=== PATIENT | female | born 1955 | race African-American/Black ===

== ENCOUNTER 2021-06-24 12:54 | Inpatient (IN) | payer MEDICAID ==
[~2021-06-24] VITALS: Ht 165.1 cm; Wt 80.3 kg
[2021-06-24 14:31] LABS: BASOPHILS % 0.3 % (0.0-2.0); EOSINOPHILS % 1.7 % (0.0-5.0); HEMATOCRIT. 40.9 % (36.0-48.0); HEMOGLOBIN. 14.1 g/dL (12.0-16.0); LYMPHOCYTES % 42.5 % (20.0-50.0); MEAN CORPUSCULAR HEMOGLOBIN 27.9 pg (28.0-32.0); MEAN PLATELET VOLUME 9.5 fl (7.4-10.4); MONOCYTES % 7.6 % (2.0-8.0); NEUTROPHILS % 47.9 % (40.0-76.0); PLATELET 283 x1000/uL (130-400); RED BLOOD CELL COUNT 5.05 mill/uL (4.2-5.4); RED CELL DISTRIBUTION WIDTH 15.2 % (11.6-14.6)
[2021-06-24 14:32] LABS: CLARITY URINE CLEAR (CLEAR); COLOR URINE YELLOW (YELLOW); KETONES URINE NEGATIVE (NEGATIVE); LEUKOCYTE ESTERASE URINE NEGATIVE (NEGATIVE); NITRITE URINE NEGATIVE (NEGATIVE); OCCULT BLOOD URINE NEGATIVE (NEGATIVE); PH URINE 7.5 (4.5-8.0); PROTEIN URINE NEGATIVE (NEGATIVE); SPECIFIC GRAVITY URINE 1.019 (1.005-1.030); UROBILINOGEN URINE 0.2 E.U./dL (0.2-1.0)
[2021-06-24 14:38] LABS: CHLORIDE 114 mEq/L (98-107)
[2021-06-24 14:42] LABS: ETHANOL BLOOD < 10 mg/dL
[2021-06-24 15:05] LABS: *AMPHETAMINES SCREEN URINE NEGATIVE (NEGATIVE); *BARBITURATES SCREEN URINE NEGATIVE (NEGATIVE); *BENZODIAZEPINES SCREEN URINE PRESUMTIVE POSITIVE (NEGATIVE); *COCAINE SCREEN URINE NEGATIVE (NEGATIVE); METHADONE URINE SCREEN NEGATIVE (NEGATIVE); OPIATES URINE SCREEN PRESUMTIVE POSITIVE (NEGATIVE)
[2021-06-24 15:06] LABS: CANNABINOID URINE SCREEN NEGATIVE (NEGATIVE); PHENCYCLIDINE URINE SCREEN NEGATIVE (NEGATIVE)
[2021-06-24] MEDS ORDERED: SODIUM CHLORIDE 0.9% 1,000 ML IV ONE (16:00)
[2021-06-24] MEDS ORDERED: HYDRALAZINE 20MG/ML VIAL IV ONE ×2 (16:15→17:15)
[2021-06-24] MEDS ORDERED: CLONIDINE 0.1MG TABLET PO ONE (20:00)
[2021-06-24] MEDS ORDERED: HYDRALAZINE 20MG/ML VIAL IV NR (20:15)
[2021-06-24] MEDS ORDERED: ONDANSETRON HCL 4MG/2ML INJ IV NR (20:15)
[2021-06-24 21:00] VITALS: BP 173/60
[2021-06-24] MEDS ORDERED: GUAIFENESIN 200MG/10ML SUGAR FREE UDC PO PRN (22:15)
[2021-06-24] MEDS ORDERED: ENOXAPARIN 40MG/0.4ML SYR SUBCUT SCH (22:15)
[2021-06-24] MEDS ORDERED: CLONIDINE 0.1MG TABLET PO PRN (22:15)
[2021-06-24] MEDS ORDERED: DOCUSATE SODIUM 100MG CAPSULE PO PRN (22:15)
[2021-06-24] MEDS ORDERED: BUSP30TA2 MT (23:48)
[2021-06-24] MEDS ORDERED: SUMA100T PO (23:50)
[2021-06-24] MEDS ORDERED: OXYC-662 PO (23:51)
[2021-06-24] MEDS ORDERED: MEGE40TA5 PO (23:53)
[2021-06-24] MEDS ORDERED: PREG75CA PO (23:54)
[2021-06-24] MEDS ORDERED: DIAZ10TA4 PO (23:55)
[2021-06-24] MEDS ORDERED: ALBU4TAB6 PO (23:57)
[2021-06-25] VITALS (8 sets, daily range): BP systolic 74–163; BP diastolic 41–112
[2021-06-25] MEDS ORDERED: FLUT50BL IH (00:08)
[2021-06-25] MEDS ORDERED: LORA-250 PO (00:09)
[2021-06-25] MEDS ORDERED: CALC-1098 PO (00:12)
[2021-06-25] MEDS ORDERED: TIOT18CA3 IH (00:12)
[2021-06-25] MEDS ORDERED: CHOL400T31 (00:15)
[2021-06-25] MEDS ORDERED: CARV12.545 PO (00:15)
[2021-06-25] MEDS ORDERED: CLON1PAT11 PO (00:16)
[2021-06-25] MEDS ORDERED: AMLO5TAB88 PO (00:18)
[2021-06-25] MEDS ORDERED: BACL-141 PO (00:19)
[2021-06-25] MEDS ORDERED: LORA10CA PO (00:20)
[2021-06-25] MEDS ORDERED: PSEU120T56 MT (00:21)
[2021-06-25] MEDS ORDERED: QUET25TA PO (00:22)
[2021-06-25] MEDS ORDERED: PANT40TA51 PO (00:24)
[2021-06-25] MEDS ORDERED: TC1U15 TP (00:24)
[2021-06-25] MEDS ORDERED: HYDR-459 PO (00:26)
[2021-06-25] MEDS ORDERED: POTA25TA8 PO (00:28)
[2021-06-25] MEDS: AMLODIPINE 10MG TABLET PO SCH ×2 (01:27→09:45)
[2021-06-25] MEDS: ENOXAPARIN 30MG/0.3ML SYR SUBCUT SCH ×3 (01:27→21:24)
[2021-06-25] MEDS: ONDANSETRON HCL 4MG/2ML INJ IV PRN (05:09)
[2021-06-25] MEDS: HYDRALAZINE HCL 50MG TABLET PO SCH ×3 (05:09→21:23)
[2021-06-25 08:22] LABS: BASOPHILS % 0.2 % (0.0-2.0); EOSINOPHILS % 0.4 % (0.0-5.0); HEMATOCRIT. 46.4 % (36.0-48.0); HEMOGLOBIN. 15.5 g/dL (12.0-16.0); LYMPHOCYTES % 24.3 % (20.0-50.0); MEAN CORPUSCULAR HEMOGLOBIN 26.9 pg (28.0-32.0); MEAN CORPUSCULAR VOLUME 80.7 fL (81.0-99.0); MEAN PLATELET VOLUME 9.8 fl (7.4-10.4); MONOCYTES % 7.5 % (2.0-8.0); NEUTROPHILS % 67.6 % (40.0-76.0); PLATELET 305 x1000/uL (130-400); RED BLOOD CELL COUNT 5.75 mill/uL (4.2-5.4); RED CELL DISTRIBUTION WIDTH 15.1 % (11.6-14.6)
[2021-06-25 08:37] LABS: CHLORIDE 110 mEq/L (98-107)
[2021-06-25 08:53] LABS: LDL CHOLESTEROL 101 mg/dL (5-100)
[2021-06-25 08:55] LABS: CREATINE KINASE 72 IU/L (26-192); HDL CHOLESTEROL 54 mg/dL (40-59)
[2021-06-25] MEDS ORDERED: LACTULOSE 20G/30ML UDC PO NR (09:30)
[2021-06-25] MEDS ORDERED: IPRATROPIUM/ALBUTEROL 0.5-3(2.5)MG/3ML NEB HHN PRN (09:30)
[2021-06-25] MEDS: ASPIRIN 81MG EC TABLET PO SCH (09:45)
[2021-06-25] MEDS: PANTOPRAZOLE 40MG DR TABLET PO SCH (09:45)
[2021-06-25] MEDS: CARVEDILOL 12.5MG TABLET PO SCH ×2 (09:45→16:48)
[2021-06-25] MEDS ORDERED: SODIUM CHLORIDE 0.9% 500 ML IV ONE (13:30)
[2021-06-25] MEDS: ACETAMINOPHEN 325MG TABLET PO PRN (19:00)
[2021-06-25 20:54] LABS: CREATINE KINASE 99 IU/L (26-192)
[2021-06-25] MEDS: MIDODRINE HCL 5MG TABLET PO SCH (21:29)
[2021-06-26] VITALS: BP 106/63
[2021-06-26 04:00] VITALS: BP 98/77
[2021-06-26] MEDS: HYDRALAZINE HCL 50MG TABLET PO SCH (05:09)
[2021-06-26 07:27] LABS: BASOPHILS % 0.2 % (0.0-2.0); EOSINOPHILS % 0.9 % (0.0-5.0); HEMATOCRIT. 40.3 % (36.0-48.0); HEMOGLOBIN. 13.4 g/dL (12.0-16.0); LYMPHOCYTES % 16.7 % (20.0-50.0); MEAN CORPUSCULAR HEMOGLOBIN 26.8 pg (28.0-32.0); MEAN CORPUSCULAR VOLUME 80.4 fL (81.0-99.0); MEAN PLATELET VOLUME 9.5 fl (7.4-10.4); MONOCYTES % 7.7 % (2.0-8.0); NEUTROPHILS % 74.5 % (40.0-76.0); PLATELET 259 x1000/uL (130-400); RED BLOOD CELL COUNT 5.01 mill/uL (4.2-5.4); RED CELL DISTRIBUTION WIDTH 15.2 % (11.6-14.6)
[2021-06-26 08:00] VITALS: BP 107/33
[2021-06-26] MEDS ORDERED: POTASSIUM CHLORIDE 20MEQ TABLET SR PO SCH (09:00)
[2021-06-26] MEDS: ENOXAPARIN 30MG/0.3ML SYR SUBCUT SCH ×2 (09:51→21:55)
[2021-06-26] MEDS: MIDODRINE HCL 5MG TABLET PO SCH ×3 (09:51→17:40)
[2021-06-26] MEDS: PANTOPRAZOLE 40MG DR TABLET PO SCH (09:51)
[2021-06-26] MEDS: ASPIRIN 81MG EC TABLET PO SCH (09:51)
[2021-06-26 12:00] VITALS: BP 138/64
[2021-06-26] MEDS: ACETAMINOPHEN 325MG TABLET PO PRN (13:16)
[2021-06-26] MEDS: ONDANSETRON HCL 4MG/2ML INJ IV PRN ×2 (13:30→18:23)
[2021-06-26] MEDS ORDERED: NALOXONE HCL 0.4MG/ML VIAL IV PRN (14:45)
[2021-06-26 16:00] VITALS: BP 114/69
[2021-06-26] MEDS: HYDROMORPHONE HCL/PF 2MG/ML CPJ IV PRN (16:00)
[2021-06-26 20:00] VITALS: BP 101/71
[2021-06-27] VITALS: BP 122/73
[2021-06-27] MEDS: HYDROMORPHONE HCL/PF 2MG/ML CPJ IV PRN ×2 (03:06→20:16)
[2021-06-27 04:00] VITALS: BP 102/63
[2021-06-27 06:23] LABS: BASOPHILS % 0.2 % (0.0-2.0); EOSINOPHILS % 0.8 % (0.0-5.0); HEMATOCRIT. 38.9 % (36.0-48.0); HEMOGLOBIN. 12.8 g/dL (12.0-16.0); MEAN CORPUSCULAR HEMOGLOBIN 26.7 pg (28.0-32.0); MEAN CORPUSCULAR VOLUME 81.4 fL (81.0-99.0); MEAN PLATELET VOLUME 9.5 fl (7.4-10.4); MONOCYTES % 7.8 % (2.0-8.0); NEUTROPHILS % 76.2 % (40.0-76.0); PLATELET 222 x1000/uL (130-400); RED BLOOD CELL COUNT 4.78 mill/uL (4.2-5.4); RED CELL DISTRIBUTION WIDTH 15.4 % (11.6-14.6)
[2021-06-27 06:44] LABS: CHLORIDE 111 mEq/L (98-107)
[2021-06-27 08:00] VITALS: BP 119/63
[2021-06-27] MEDS: MIDODRINE HCL 5MG TABLET PO SCH ×3 (08:24→17:33)
[2021-06-27] MEDS: PANTOPRAZOLE 40MG DR TABLET PO SCH (08:24)
[2021-06-27] MEDS: ASPIRIN 81MG EC TABLET PO SCH (08:24)
[2021-06-27] MEDS: ACETAMINOPHEN 325MG TABLET PO PRN ×3 (08:24→17:33)
[2021-06-27] MEDS: ENOXAPARIN 30MG/0.3ML SYR SUBCUT SCH ×2 (10:11→21:34)
[2021-06-27 12:00] VITALS: BP 93/58
[2021-06-27] MEDS: MEGESTROL ACETATE 40MG TABLET PO SCH ×2 (13:28→20:16)
[2021-06-27 16:00] VITALS: BP 133/77
[2021-06-27] MEDS: ONDANSETRON HCL 4MG/2ML INJ IV PRN (16:42)
[2021-06-27 20:00] VITALS: BP 159/94
[2021-06-28] VITALS: BP 129/44
[2021-06-28 04:00] VITALS: BP 133/69
[2021-06-28 08:00] VITALS: BP 160/90
[2021-06-28] MEDS: ASPIRIN 81MG EC TABLET PO SCH (09:00)
[2021-06-28] MEDS: FAMOTIDINE 20MG TABLET PO SCH ×2 (09:00→20:35)
[2021-06-28] MEDS: MEGESTROL ACETATE 40MG TABLET PO SCH ×2 (09:00→17:37)
[2021-06-28] MEDS: ENOXAPARIN 30MG/0.3ML SYR SUBCUT SCH ×2 (10:30→22:30)
[2021-06-28 12:00] VITALS: BP 158/88
[2021-06-28 16:00] VITALS: BP 160/90
[2021-06-28 16:11] LABS: BASOPHILS % 0.2 % (0.0-2.0); EOSINOPHILS % 1.1 % (0.0-5.0); HEMATOCRIT. 42.1 % (36.0-48.0); HEMOGLOBIN. 13.8 g/dL (12.0-16.0); LYMPHOCYTES % 29.9 % (20.0-50.0); MEAN CORPUSCULAR VOLUME 82.3 fL (81.0-99.0); MEAN PLATELET VOLUME 9.8 fl (7.4-10.4); MONOCYTES % 11.9 % (2.0-8.0); NEUTROPHILS % 56.9 % (40.0-76.0); PLATELET 235 x1000/uL (130-400); RED BLOOD CELL COUNT 5.12 mill/uL (4.2-5.4); RED CELL DISTRIBUTION WIDTH 15.4 % (11.6-14.6)
[2021-06-28 16:12] LABS: CHLORIDE 110 mEq/L (98-107)
[2021-06-28] MEDS ORDERED: DIPHENHYDRAMINE 50MG/ML VIAL IV PRN (17:30)
[2021-06-28 20:00] VITALS: BP 171/96
[2021-06-28] MEDS: DIAZEPAM 5 MG TABLET PO SCH (20:36)
[2021-06-28] MEDS ORDERED: MENTHOL/LANOLIN/CALAMINE/ZN OX OINT 71GM TOP PRN (21:00)
[2021-06-28] MEDS ORDERED: QUETIAPINE FUMARATE 25MG TABLET PO SCH (21:00)
[2021-06-28] MEDS ORDERED: LORAZEPAM 2MG/ML CPJ IV PRN (22:24)
[2021-06-29 04:00] VITALS: BP 144/90
[2021-06-29 08:00] VITALS: BP 141/95
[2021-06-29] MEDS: ENOXAPARIN 30MG/0.3ML SYR SUBCUT SCH (10:00)
[2021-06-29] MEDS: FAMOTIDINE 20MG TABLET PO SCH (10:01)
[2021-06-29] MEDS: ASPIRIN 81MG EC TABLET PO SCH (10:01)
[2021-06-29] MEDS: MEGESTROL ACETATE 40MG TABLET PO SCH (10:01)
[2021-06-29] MEDS: DIAZEPAM 5 MG TABLET PO SCH (10:01)
[2021-06-29 12:00] VITALS: BP 151/102
[2021-06-29] MEDS: HYDROMORPHONE HCL/PF 2MG/ML CPJ IV PRN (12:28)
[2021-06-29 14:15] VITALS: BP 118/67
[2021-06-29 16:00] VITALS: BP 159/129
[2021-06-29] MEDS ORDERED: ENOXAPARIN 40MG/0.4ML SYR SUBCUT SCH (22:00)
== END 2021-06-29 16:07 | disposition home or self-care (01) | DRG 52 ==
LOC: ER 12:54 → 8WST 17:17 → ENRESERV 19:44
PROVIDERS: ADMIT Hospitalist; ATTEND Hospitalist
DX: G92 Toxic encephalopathy (principal); E72.20 Disorder of urea cycle metabolism, unspecified; I95.9 Hypotension, unspecified; I10 Essential (primary) hypertension; I16.0 Hypertensive urgency; M54.9 Dorsalgia, unspecified; F11.93 Opioid use, unspecified with withdrawal; T40.2X5A Adverse effect of other opioids, initial encounter; F41.9 Anxiety disorder, unspecified; G89.4 Chronic pain syndrome; J44.9 Chronic obstructive pulmonary disease, unspecified; Z85.118 Personal history of other malignant neoplasm of bronchus and lung; Z88.0 Allergy status to penicillin; Y92.89 Other specified places as the place of occurrence of the external cause
CPT/HCPCS: 36415; 71045; 80053; 80061; 80305; 80307; 80320; 80329; 81003; 82140; 82550; 83605; 83735; 84484; 85025; 97162; 99285; J0360; J1170; J1200; J1650; J2060; J2405; J7030; G0480